=== PATIENT | male | born 1975 | race Two or more races ===

== ENCOUNTER 2022-01-17 16:42 | Emergency (ER) | payer OTHER ==
[~2022-01-17] VITALS: Ht 167.6 cm; Wt 102.5 kg
[~2022-01-17 16:42] MED LIST: COZAAR50 MG; DOLOGESIC 500-1 EACH PO; LIPITOR20 MG; PERSANTINE50 MG; TOPROL XL50 M1
[2022-01-17] MEDS ORDERED: PAROXETINE HCL20 MG PO (17:14)
[2022-01-17] MEDS ORDERED: MAXITROL EYE DRO5 ML OP (17:54)
== END 2022-01-17 18:17 | disposition home or self-care (01) ==
LOC: ER 16:42
DX: H10.9 Unspecified conjunctivitis (principal)

== ENCOUNTER 2022-09-11 12:56 | Emergency (ER) | payer OTHER ==
[~2022-09-11] VITALS: Ht 167.6 cm; Wt 101.6 kg
[~2022-09-11 12:56] MED LIST changes: +MAXITROL EYE DRO5 ML OP; +PAROXETINE HCL20 MG PO
[2022-09-11] MEDS ORDERED: NORFLEX100MG PO (15:49)
== END 2022-09-11 15:53 | disposition home or self-care (01) ==
LOC: ER 12:56
DX: M25.511 Pain in right shoulder (principal); M54.50 Low back pain, unspecified; E78.00 Pure hypercholesterolemia, unspecified; I10 Essential (primary) hypertension; Z88.6 Allergy status to analgesic agent

== ENCOUNTER 2023-02-12 13:20 | Emergency (ER) | payer OTHER ==
[~2023-02-12] VITALS: Ht 167.6 cm; Wt 99.8 kg
[~2023-02-12 13:20] MED LIST changes: +NORFLEX100MG PO
[2023-02-12] MEDS ORDERED: PAXIL20 MG PO (13:50)
[2023-02-12] MEDS ORDERED: KETO10TA2 PO (14:20)
[2023-02-12] MEDS ORDERED: DOLOGEN CAPLET1 EACH PO (14:20)
== END 2023-02-12 14:44 | disposition home or self-care (01) ==
LOC: ER 13:20
DX: M25.511 Pain in right shoulder (principal); Z88.6 Allergy status to analgesic agent

== ENCOUNTER 2025-05-31 21:34 | Emergency (ER) | payer OTHER ==
[~2025-05-31] VITALS: Ht 167.6 cm; Wt 102.1 kg
[~2025-05-31 21:34] MED LIST changes: +BENADRYL ALLERG25 MG PO; +CIPRO500 MG PO; +COZAAR50 MG PO; +DOLOGEN CAPLET1 EACH PO; +KETO10TA2 PO; +LIPITOR40 M1 PO; +MEDROL8 MG PO; +PAXIL20 MG PO; +PEPCID40 MG PO; +PERSANTINE50 MG PO; +TOPROL XL50 M1 PO
[2025-05-31 21:53] VITALS: O2SAT 98
[2025-05-31] MEDS ORDERED: ENALAPRILAT DIHYDRATE 1.25 MG/ML VIAL IV ONE ×2 (23:00→23:09)
[2025-06-01] MEDS ORDERED: ENALAPRILAT DIHYDRATE 1.25 MG/ML VIAL IV ONE ×2 (00:29→01:30)
[2025-06-01] MEDS ORDERED: ACYCLOVIR15 GM TOP (01:36)
[2025-06-01] MEDS ORDERED: ZOVIRAX800 MG PO (01:36)
[2025-06-01 01:43] VITALS: BP 130/80
== END 2025-06-01 01:44 | disposition home or self-care (01) ==
LOC: ER 21:34
DX: A60.02 Herpesviral infection of other male genital organs (principal); I10 Essential (primary) hypertension; Z88.6 Allergy status to analgesic agent